=== PATIENT | male | born 1960 | race Two or more races ===

== ENCOUNTER → 2017-07-01 | Outpatient (CLI) | payer OTHER ==
[~2017-07-01] MED LIST: BISOPROLOL-HCTZ1 TA6; CIPRODEX OTIC7.5 ML OT; EPLERENONE25 MG; LOSARTAN POTASS25 MG; LOSARTAN-HCTZ1 EAC2; LOSARTAN-HCTZ1 EACH; VOLTAREN-XR100 MG PO
== END | disposition home or self-care (01) ==
LOC: PPHC 09:26
DX: Z00.00 Encounter for general adult medical examination without abnormal findings (principal)

== ENCOUNTER → 2017-07-08 09:39 | Outpatient (CLI) | payer OTHER | END | disposition home or self-care (01) | LOC: LAB 09:39 | DX: I10 Essential (primary) hypertension (principal); R51 Headache ==

== ENCOUNTER → 2017-07-08 09:43 | Outpatient (CLI) | payer OTHER | END | disposition home or self-care (01) | LOC: RAD 09:43 | DX: R05 Cough (principal) ==